=== PATIENT | female | born 2000 | race Two or more races ===

== ENCOUNTER 2022-11-26 12:09 | Observation (INO) | payer MEDICAID ==
[~2022-11-26] VITALS: Ht 162.6 cm; Wt 80.3 kg
[2022-11-26] MEDS ORDERED: PREN-96 PO (14:35)
== END 2022-11-26 15:03 | disposition home or self-care (01) ==
LOC: LDRP 12:09 → UNDOADMOB 12:09 → LDRP 12:22 → UNDODISOB 14:46
PROVIDERS: ADMIT Obstetrics & Gynecology; ATTEND Obstetrics & Gynecology
DX: O24.419 Gestational diabetes mellitus in pregnancy, unspecified control (principal); O36.8330 Maternal care for abnormalities of the fetal heart rate or rhythm, third trimester, not applicable or unspecified; Z3A.32 32 weeks gestation of pregnancy
CPT/HCPCS: 59025; 76818; 81002; 82948; 82962; 94760; G0378

== ENCOUNTER 2022-12-06 10:35 | Observation (INO) | payer MEDICAID ==
[~2022-12-06 10:35] MED LIST: PREN-96 PO
== END 2022-12-06 13:09 | disposition home or self-care (01) ==
LOC: LDRP 10:35 → UNDOADMOB 10:35 → LDRP 10:44 → UNDODISOB 13:09
PROVIDERS: ADMIT Obstetrics & Gynecology; ATTEND Obstetrics & Gynecology
DX: O24.419 Gestational diabetes mellitus in pregnancy, unspecified control (principal); O99.333 Smoking (tobacco) complicating pregnancy, third trimester; F17.200 Nicotine dependence, unspecified, uncomplicated; Z3A.33 33 weeks gestation of pregnancy
CPT/HCPCS: 59025; 76818; 81002; 82948; 82962; 94760; G0378

== ENCOUNTER 2022-12-13 09:45 | Observation (INO) | payer MEDICAID | END 2022-12-13 11:14 | disposition home or self-care (01) | LOC: LDRP 09:45 | PROVIDERS: ADMIT Obstetrics & Gynecology; ATTEND Obstetrics & Gynecology | DX: O24.419 Gestational diabetes mellitus in pregnancy, unspecified control (principal); O26.893 Other specified pregnancy related conditions, third trimester; N89.8 Other specified noninflammatory disorders of vagina; Z3A.34 34 weeks gestation of pregnancy | CPT/HCPCS: 59025; 76818; 81002; 82948; 82962; 94760; G0378 ==

== ENCOUNTER 2022-12-20 11:30 | Observation (INO) | payer MEDICAID ==
[~2022-12-20] VITALS: Ht 149.9 cm; Wt 70.8 kg
== END 2022-12-20 13:04 | disposition home or self-care (01) ==
LOC: LDRP 11:30
PROVIDERS: ADMIT Obstetrics & Gynecology; ATTEND Obstetrics & Gynecology
DX: O24.419 Gestational diabetes mellitus in pregnancy, unspecified control (principal); Z3A.35 35 weeks gestation of pregnancy
CPT/HCPCS: 59025; 76818; 81002; 82948; 82962; 94760; G0378

== ENCOUNTER 2023-01-03 09:26 | Observation (INO) | payer MEDICAID ==
[2023-01-10] MEDS ORDERED: IBU600T PO (18:44)
[2023-01-10] MEDS ORDERED: ACET-1882 PO (18:44)
[2023-01-10] MEDS ORDERED: DOCU-265 PO (18:44)
[2023-01-10] MEDS ORDERED: PREN-96 PO (18:44)
[2023-01-10] MEDS ORDERED: ASCO1TAB27 PO (18:44)
[2023-01-10] MEDS ORDERED: CARB1TAB65 PO (18:44)
== END 2023-01-03 12:14 | disposition home or self-care (01) ==
LOC: UNDOADMOB 10:50 → LDRP 10:50 → UNDODISOB 12:14
PROVIDERS: ADMIT Obstetrics & Gynecology; ATTEND Obstetrics & Gynecology
DX: O24.419 Gestational diabetes mellitus in pregnancy, unspecified control (principal); Z3A.37 37 weeks gestation of pregnancy
CPT/HCPCS: 59025; 76818; 81002; 82948; 82962; 94760; G0378